=== PATIENT | male | born 1975 | race Caucasian/White ===

== ENCOUNTER 2021-06-22 12:01 | Inpatient (IN) | payer MEDICARE, MEDICAID ==
[~2021-06-22] VITALS: Ht 170.2 cm; Wt 61.5 kg
[2021-06-22 12:50] LABS: BASOPHILS % 1.1 % (0.0-2.0); EOSINOPHILS % 2.3 % (0.0-5.0); HEMOGLOBIN. 7.7 g/dL (14.0-18.0); LYMPHOCYTES % 12.3 % (20.0-50.0); MEAN CORPUSCULAR HEMOGLOBIN 28.5 pg (28.0-32.0); MEAN CORPUSCULAR VOLUME 85.2 fL (80.0-94.0); MEAN PLATELET VOLUME 6.5 fl (7.4-10.4); NEUTROPHILS % 81.3 % (40.0-76.0); PLATELET 194 x1000/uL (130-400); RED CELL DISTRIBUTION WIDTH 19.2 % (11.6-14.6)
[2021-06-22 12:52] LABS: CHLORIDE 100 mEq/L (98-107)
[2021-06-22 12:56] LABS: ETHANOL BLOOD < 10 mg/dL
[2021-06-22] MEDS ORDERED: LORAZEPAM 2MG/ML CPJ IV ONE (13:30)
[2021-06-22] MEDS ORDERED: AZITHROMYCIN 500 MG in DEXT 5% WATER 250 ML IV SCH (13:45)
[2021-06-22] MEDS ORDERED: CEFTRIAXONE 1 G PREMIX 50 ML IV ONE (13:45)
[2021-06-22] MEDS ORDERED: IPRATROPIUM/ALBUTEROL 0.5-3(2.5)MG/3ML NEB NEB PRN (18:15)
[2021-06-22] MEDS ORDERED: NA PHOS,M-B/NA PHOS,DI-BA ENEMA 118ML PR PRN (18:15)
[2021-06-22] MEDS ORDERED: MAGNESIUM/ALUMINUM HYDROXIDE/SIMETHICONE 30ML UDC PO PRN (18:15)
[2021-06-22] MEDS ORDERED: ACETAMINOPHEN 325MG TABLET PO PRN (18:15)
[2021-06-22] MEDS ORDERED: DIPHENHYDRAMINE 50MG/ML VIAL IV PRN (18:15)
[2021-06-22] MEDS ORDERED: DOCUSATE SODIUM 100MG CAPSULE PO PRN (18:15)
[2021-06-22] MEDS ORDERED: HYDROCODONE/ACETAMINOPHEN 5/325MG TABLET PO PRN (18:15)
[2021-06-22] MEDS ORDERED: MORPHINE SULFATE 2 MG/ML CPJ (NOT FOR IM USE) IV PRN (18:15)
[2021-06-22] MEDS ORDERED: ONDANSETRON HCL 4MG/2ML INJ IV PRN (18:15)
[2021-06-22] MEDS ORDERED: CLONIDINE 0.1MG TABLET PO PRN (18:15)
[2021-06-22] MEDS ORDERED: GUAIFENESIN 200MG/10ML SUGAR FREE UDC PO PRN (18:15)
[2021-06-22] MEDS ORDERED: NALOXONE HCL 0.4MG/ML VIAL IV PRN (18:15)
[2021-06-22 20:23] LABS: BG BASE EXCESS -1.5 mmol/L (-2.0-2.0); BG CARBOXYHEMOGLOBIN 0.3 % (0.5-1.5); BG DEOXYHEMOGLOBIN 5.8 % (0.0-5.0); BG FRACTION INSPIRED OXYGEN 21; BG HCO3 ACT 23.9 mmol/L (22.0-26.0); BG METHEMOGLOBIN 0.3 % (0.0-1.5); BG OXYGEN SATURATION 94.2 % (92.0-98.5); BG OXYHEMOGLOBIN 93.6 % (94.0-97.0); BG PCO2 43.1 mmHg (35.0-45.0); BG PH 7.361 (7.350-7.450); BG SAMPLE SITE RIGHT BRACHIAL; BG TOTAL HEMOGLOBIN 8.1 g/dL (12.0-18.0); BG VENT MODE ROOM AIR
[2021-06-22] MEDS: LORAZEPAM 2MG/ML CPJ IV PRN (20:34)
[2021-06-22] MEDS ORDERED: ENOXAPARIN 30MG/0.3ML SYR SUBCUT SCH (21:00)
[2021-06-23] VITALS (14 sets, daily range): BP systolic 87–138; BP diastolic 44–89
[2021-06-23] MEDS ORDERED: CARV3.1242 MT (02:33)
[2021-06-23] MEDS ORDERED: SEVE2.4P3 PO (02:33)
[2021-06-23] MEDS ORDERED: LEVO125T8 MT (02:33)
[2021-06-23] MEDS ORDERED: ASPI-1497 MT (02:33)
[2021-06-23] MEDS: LORAZEPAM 2MG/ML CPJ IV PRN (03:22)
[2021-06-23] MEDS: ASPIRIN 81MG EC TABLET PO SCH (08:36)
[2021-06-23 09:07] LABS: BASOPHILS % 1.8 % (0.0-2.0); EOSINOPHILS % 2.9 % (0.0-5.0); HEMATOCRIT. 23.2 % (42.0-52.0); HEMOGLOBIN. 7.6 g/dL (14.0-18.0); LYMPHOCYTES % 18.3 % (20.0-50.0); MEAN CORPUSCULAR VOLUME 85.2 fL (80.0-94.0); MEAN PLATELET VOLUME 7.1 fl (7.4-10.4); MONOCYTES % 4.9 % (2.0-8.0); NEUTROPHILS % 72.1 % (40.0-76.0); PLATELET 166 x1000/uL (130-400); RED BLOOD CELL COUNT 2.72 mill/uL (4.7-6.1); RED CELL DISTRIBUTION WIDTH 19.1 % (11.6-14.6)
[2021-06-23 09:12] LABS: CHLORIDE 101 mEq/L (98-107)
[2021-06-23 09:20] LABS: LDL CHOLESTEROL 90 mg/dL (5-100)
[2021-06-23 09:21] LABS: HDL CHOLESTEROL 59 mg/dL (40-59)
[2021-06-23 09:22] LABS: T4 FREE 0.37 ng/dL (0.76-1.46)
[2021-06-23] MEDS: SODIUM CHLORIDE 0.9% 1,000 ML IV SCH (13:18)
[2021-06-23] MEDS ORDERED: AZITHROMYCIN 500 MG in DEXT 5% WATER 250 ML IV SCH ×2 (14:00→16:00)
[2021-06-23 15:02] LABS: PHOSPHORUS 5.7 mg/dL (2.5-4.9)
[2021-06-23 15:47] LABS: CREATINE KINASE MB FRACTION 36.9 ng/mL (0.5-3.6)
[2021-06-23] MEDS: METRONIDAZOLE 500MG TABLET PO SCH (17:28)
[2021-06-23] MEDS: LEVOTHYROXINE SODIUM 50MCG TABLET PO SCH (17:29)
[2021-06-23] MEDS ORDERED: LEVOFLOXACIN 750MG PREMIX 150 ML IV NR (18:00)
[2021-06-23] MEDS ORDERED: METRONIDAZOLE 500MG TABLET PO SCH (22:00)
[2021-06-24] VITALS (11 sets, daily range): BP systolic 92–124; BP diastolic 49–84
[2021-06-24] MEDS: METRONIDAZOLE 500MG TABLET PO SCH ×2 (05:00→17:00)
[2021-06-24] MEDS: LEVOTHYROXINE SODIUM 50MCG TABLET PO SCH (06:11)
[2021-06-24] MEDS: SODIUM CHLORIDE 0.9% 1,000 ML IV SCH (08:30)
[2021-06-24] MEDS: ASPIRIN 81MG EC TABLET PO SCH (09:00)
[2021-06-25 04:00] VITALS: BP 116/74
[2021-06-25] MEDS: LEVOTHYROXINE SODIUM 50MCG TABLET PO SCH (06:08)
[2021-06-25] MEDS: SODIUM CHLORIDE 0.9% 1,000 ML IV SCH (06:08)
[2021-06-25 07:26] LABS: BASOPHILS % 0.9 % (0.0-2.0); EOSINOPHILS % 3.7 % (0.0-5.0); HEMOGLOBIN. 7.3 g/dL (14.0-18.0); MEAN CORPUSCULAR HEMOGLOBIN 27.8 pg (28.0-32.0); MEAN CORPUSCULAR VOLUME 87.3 fL (80.0-94.0); MEAN PLATELET VOLUME 7.2 fl (7.4-10.4); MONOCYTES % 6.9 % (2.0-8.0); NEUTROPHILS % 66.5 % (40.0-76.0); PLATELET 156 x1000/uL (130-400); RED BLOOD CELL COUNT 2.64 mill/uL (4.7-6.1); RED CELL DISTRIBUTION WIDTH 20.4 % (11.6-14.6)
[2021-06-25 07:50] VITALS: BP 109/66
[2021-06-25 08:12] LABS: T4 FREE 0.39 ng/dL (0.76-1.46)
[2021-06-25] MEDS: ASPIRIN 81MG EC TABLET PO SCH ×2 (09:00→09:38)
[2021-06-25] MEDS ORDERED: DEXTROSE 50% WATER 50ML SYRINGE IV PRN ×2 (09:30→15:30)
[2021-06-25] MEDS: LEVOTHYROXINE SODIUM 125MCG TABLET PO SCH ×2 (11:00→12:41)
[2021-06-25 11:06] VITALS: BP 87/47
[2021-06-25 15:19] VITALS: BP 110/73
[2021-06-25] MEDS: BLOOD SUGAR DIAGNOSTIC STRIP TEST SCH ×2 (16:56→21:58)
[2021-06-25] MEDS ORDERED: LEVOFLOXACIN 500MG PREMIX 100 ML IV SCH (18:00)
[2021-06-25 20:00] VITALS: BP 96/41
[2021-06-25] MEDS ORDERED: IOHEXOL-350 100 ML BOTTLE ONE (23:08)
[2021-06-26 00:28] VITALS: BP 124/39
[2021-06-26 04:00] VITALS: BP 108/55
[2021-06-26] MEDS: LEVOTHYROXINE SODIUM 125MCG TABLET PO SCH (06:30)
[2021-06-26] MEDS: SODIUM CHLORIDE 0.9% 1,000 ML IV SCH (06:31)
[2021-06-26] MEDS: BLOOD SUGAR DIAGNOSTIC STRIP TEST SCH ×2 (07:29→12:12)
[2021-06-26 07:44] LABS: BASOPHILS % 1.1 % (0.0-2.0); EOSINOPHILS % 2.4 % (0.0-5.0); HEMATOCRIT. 21.9 % (42.0-52.0); HEMOGLOBIN. 7.2 g/dL (14.0-18.0); LYMPHOCYTES % 20.1 % (20.0-50.0); MEAN CORPUSCULAR HEMOGLOBIN 28.3 pg (28.0-32.0); MEAN CORPUSCULAR VOLUME 86.1 fL (80.0-94.0); MEAN PLATELET VOLUME 7.3 fl (7.4-10.4); MONOCYTES % 7.6 % (2.0-8.0); NEUTROPHILS % 68.8 % (40.0-76.0); PLATELET 132 x1000/uL (130-400); RED BLOOD CELL COUNT 2.55 mill/uL (4.7-6.1); RED CELL DISTRIBUTION WIDTH 20.5 % (11.6-14.6)
[2021-06-26 07:56] VITALS: BP 105/47
[2021-06-26] MEDS: ASPIRIN 81MG EC TABLET PO SCH (08:46)
[2021-06-26 11:49] VITALS: BP 93/41
[2021-06-26 15:52] VITALS: BP 98/45
[2021-06-26 16:02] VITALS: BP 94/42
[2021-06-27] MEDS ORDERED: LEVOFLOXACIN 500MG TABLET PO SCH (18:00)
== END 2021-06-26 18:00 | disposition home health service (06) | DRG 871 ==
LOC: ER 12:01 → MICUSO 17:02 → 3WST 23:46 → 6WST 06-24 21:33
PROVIDERS: ADMIT Internal Medicine; ATTEND Internal Medicine
PROC: 3E1M39Z Irrigation of Peritoneal Cavity using Dialysate, Percutaneous Approach (ICD-10-PCS; principal; 2021-06-23)
PROC: 3E1M39Z Irrigation of Peritoneal Cavity using Dialysate, Percutaneous Approach (ICD-10-PCS; 2021-06-26)
DX: A41.9 Sepsis, unspecified organism (principal); E43 Unspecified severe protein-calorie malnutrition; G92 Toxic encephalopathy; J18.9 Pneumonia, unspecified organism; N18.6 End stage renal disease; J96.20 Acute and chronic respiratory failure, unspecified whether with hypoxia or hypercapnia; E87.1 Hypo-osmolality and hyponatremia; I13.2 Hypertensive heart and chronic kidney disease with heart failure and with stage 5 chronic kidney disease, or end stage renal disease; R18.8 Other ascites; D64.9 Anemia, unspecified; E03.9 Hypothyroidism, unspecified; E86.0 Dehydration; I50.9 Heart failure, unspecified; I77.9 Disorder of arteries and arterioles, unspecified; R48.8 Other symbolic dysfunctions; Z20.822 Contact with and (suspected) exposure to COVID-19; I73.9 Peripheral vascular disease, unspecified; K31.84 Gastroparesis; R65.20 Severe sepsis without septic shock; Z99.2 Dependence on renal dialysis; Z88.1 Allergy status to other antibiotic agents; Z87.01 Personal history of pneumonia (recurrent); Z99.81 Dependence on supplemental oxygen; Z79.899 Other long term (current) drug therapy; Z79.82 Long term (current) use of aspirin; Z68.21 Body mass index [BMI] 21.0-21.9, adult
CPT/HCPCS: 36415; 36600; 71045; 73620; 74176; 75635; 80048; 80053; 80061; 80307; 80320; 80329; 82140; 82375; 82550; 82553; 82805; 82962; 83036; 83735; 83880; 84100; 84439; 84443; 84484; 85025; 85379; 86140; 86850; 86900; 87426; 93005; 93306; 93923; 99285; J0456; J0696; J1200; J1956; J2060; J2270; J2405; J7030; J7060; Q9967; G0480